=== PATIENT | female | born 1985 ===

== ENCOUNTER 2018-01-11 15:32 | Inpatient (IN) | payer OTHER ==
[~2018-01-11] VITALS: Ht 154.9 cm; Wt 65.0 kg
[2018-01-12] MEDS ORDERED: OXYTOCIN 30U/ 0.9% NaCL 500ML 500 ML IV SCH (05:44)
[2018-01-12] MEDS ORDERED: LACTATED RINGERS 1,000 ML IV SCH ×3 (05:44→07:36)
[2018-01-12] MEDS ORDERED: NEWBORN KIT ONE (05:56)
[2018-01-12] MEDS ORDERED: METOCLOPRAMIDE 5 MG/ML, 2ML IV ONE (06:00)
[2018-01-12] MEDS ORDERED: PLEASE ENTER ALLERGIES MC SCH (06:00)
[2018-01-12] MEDS ORDERED: SODIUM CITRATE/CITRIC ACID 30 ML UDC PO ONE (06:00)
[2018-01-12] MEDS ORDERED: ONDANSETRON 2MG/ML, 2ML IVPush ONE (06:00)
[2018-01-12] MEDS ORDERED: LACTATED RINGERS 1,000 ML IVBOLUS ONE (06:00)
[2018-01-12 06:15] LABS: BASOPHILS # (AUTO) 0.02 x10^3/uL (0-0.1); BASOPHILS % (AUTO) 0 % (0-1); EOSINOPHILS # (AUTO) 0.07 x10^3/uL (0-0.4); EOSINOPHILS % (AUTO) 1 % (1-7); LYMPHOCYTES # (AUTO) 1.93 x10^3/uL (1-3.4); LYMPHOCYTES % (AUTO) 23 % (22-44); MD NO; MEAN CORPUSCULAR HEMOGLOBIN 31.4 pg (27.0-34.8); MEAN CORPUSCULAR HGB CONC 33.8 g/dL (32.4-35.8); MEAN CORPUSCULAR VOLUME 92.9 fL (80-100); MEAN PLATELET VOLUME 8.8 fL (7.4-10.4); MONOCYTES # (AUTO) 0.58 x10^3/uL (0.2-0.8); MONOCYTES % (AUTO) 7 % (2-9); NEUTROPHILS # (AUTO) 5.93 x10^3/uL (1.8-6.8); NEUTROPHILS % (AUTO) 70 % (42-75); PLATELET COUNT 191 x10^3/uL (130-400); RED BLOOD COUNT 4.22 x10^6/uL (3.82-5.3); RED CELL DISTRIBUTION WIDTH 15.8 % (9.6-15.2)
[2018-01-12] MEDS ORDERED: METOCLOPRAMIDE 5 MG/ML, 2ML ONE (06:55)
[2018-01-12] MEDS ORDERED: SODIUM CITRATE/CITRIC ACID 30 ML UDC ONE (06:55)
[2018-01-12] MEDS ORDERED: FENTANYL PF 100 MCG/2ML ONE (07:08)
[2018-01-12] MEDS ORDERED: LIDOCAINE-MPF 2% ,5ML ONE (07:09)
[2018-01-12] MEDS ORDERED: OXYTOCIN 10 UNITS/ML, 1ML ONE (07:09)
[2018-01-12] MEDS ORDERED: CEFAZOLIN 1,000 MG ONE (07:09)
[2018-01-12] MEDS ORDERED: BUPIVACAINE/PF 0.5% ONE (07:10)
[2018-01-12] MEDS: OXYTOCIN 30U/ 0.9% NaCL 500ML 500 ML IV SCH ×2 (07:36→17:36)
[2018-01-12] MEDS ORDERED: OXYcodone/APAP 5/325MG TABLET PO PRN (08:00)
[2018-01-12] MEDS ORDERED: CALCIUM CARBONATE 500 MG TAB.CHEW PO PRN (08:00)
[2018-01-12] MEDS ORDERED: DIPH,PERTUSS(ACELL),TET VAC/PF NC IM-VACC PRN (08:00)
[2018-01-12] MEDS ORDERED: MISOPROSTOL 200 MCG TABLET PR PRN (08:00)
[2018-01-12] MEDS ORDERED: KETOROLAC 30 MG/1 ML IV SCH (08:00)
[2018-01-12] MEDS ORDERED: SIMETHICONE 80 MG CHEW TAB PO PRN (08:00)
[2018-01-12] MEDS ORDERED: morphine SULFATE 10 MG/ML, 1ML IVPush PRN ×2 (08:00)
[2018-01-12] MEDS ORDERED: MEASLES,MUMPS&RUBELLA VACC/PF 0.5 ML SQ-VACC PRN (08:00)
[2018-01-12] MEDS ORDERED: ONDANSETRON 2MG/ML, 2ML IV PRN ×2 (08:00→09:00)
[2018-01-12] MEDS ORDERED: ONDANSETRON 2MG/ML, 2ML ONE (08:18)
[2018-01-12] MEDS ORDERED: KETOROLAC 30 MG/1 ML ONE (08:18)
[2018-01-12] MEDS ORDERED: GLYCOPYRROLATE 0.4 MG/2 ML, 2ML ONE (08:21)
[2018-01-12] MEDS ORDERED: OXYTOCIN 30U/ 0.9% NaCL 500ML 500 ML ONE (08:44)
[2018-01-12] MEDS ORDERED: FENTANYL PF 100 MCG/2ML IV PRN (09:00)
[2018-01-12] MEDS ORDERED: MORPHINE SULFATE 4 MG/ML, 1ML IVPush PRN (09:00)
[2018-01-12] MEDS: PRENATAL VIT/IRON/FA 1 EACH TABLET PO SCH (09:00)
[2018-01-12] MEDS ORDERED: OXYcodone 5 MG/5 ML ORAL.SOL UDC PO PRN (09:00)
[2018-01-12] MEDS ORDERED: PROMETHAZINE 25 MG/ML, 1ML IV PRN (09:00)
[2018-01-12] MEDS: LACTATED RINGERS 1,000 ML IV SCH ×2 (09:11→17:36)
[2018-01-12 10:45] VITALS: BP 107/72
[2018-01-12 15:03] LABS: MEAN CORPUSCULAR HEMOGLOBIN 30.8 pg (27.0-34.8); MEAN CORPUSCULAR HGB CONC 33.5 g/dL (32.4-35.8); MEAN CORPUSCULAR VOLUME 91.9 fL (80-100); MEAN PLATELET VOLUME 8.6 fL (7.4-10.4); PLATELET COUNT 160 x10^3/uL (130-400); RED BLOOD COUNT 3.64 x10^6/uL (3.82-5.3); RED CELL DISTRIBUTION WIDTH 15.7 % (9.6-15.2)
[2018-01-12 15:20] VITALS: BP 91/50
[2018-01-12 15:40] LABS: BASOPHILS # (AUTO) 0.05 x10^3/uL (0-0.1); BASOPHILS % (AUTO) 0 % (0-1); EOSINOPHILS # (AUTO) 0.02 x10^3/uL (0-0.4); EOSINOPHILS % (AUTO) 0 % (1-7); LYMPHOCYTES # (AUTO) 1.45 x10^3/uL (1-3.4); LYMPHOCYTES % (AUTO) 14 % (22-44); MD NO; MONOCYTES # (AUTO) 0.35 x10^3/uL (0.2-0.8); MONOCYTES % (AUTO) 3 % (2-9); NEUTROPHILS # (AUTO) 8.41 x10^3/uL (1.8-6.8); NEUTROPHILS % (AUTO) 82 % (42-75)
[2018-01-12] MEDS ORDERED: EPHEDRINE 50 MG/ML, 1ML ONE (16:06)
[2018-01-12 19:45] VITALS: BP 92/54
[2018-01-12] MEDS: KETOROLAC 30 MG/1 ML IV SCH (20:30)
[2018-01-12] MEDS: DOCUSATE 100 MG CAPSULE PO PRN (20:30)
[2018-01-12] MEDS: ACETAMINOPHEN 325 MG TABLET PO PRN (20:36)
[2018-01-13] MEDS: ACETAMINOPHEN 325 MG TABLET PO PRN ×8 (00:31→20:29)
[2018-01-13 00:39] VITALS: BP 108/71
[2018-01-13] MEDS: KETOROLAC 30 MG/1 ML IV SCH ×4 (02:30→20:30)
[2018-01-13] MEDS: IBUPROFEN 600 MG TABLET PO PRN ×4 (02:43→22:43)
[2018-01-13] MEDS: OXYTOCIN 30U/ 0.9% NaCL 500ML 500 ML IV SCH ×3 (02:45→23:36)
[2018-01-13] MEDS: LACTATED RINGERS 1,000 ML IV SCH ×3 (02:45→23:36)
[2018-01-13 04:45] VITALS: BP 100/62
[2018-01-13 06:50] VITALS: BP 104/70
[2018-01-13] MEDS: DOCUSATE 100 MG CAPSULE PO PRN ×2 (08:30→20:29)
[2018-01-13] MEDS: PRENATAL VIT/IRON/FA 1 EACH TABLET PO SCH (09:00)
[2018-01-13 20:10] VITALS: BP 105/74
[2018-01-14] MEDS: OXYcodone/APAP 5/325MG TABLET PO PRN ×3 (00:27→14:21)
[2018-01-14 07:44] VITALS: BP 102/68
[2018-01-14] MEDS: PRENATAL VIT/IRON/FA 1 EACH TABLET PO SCH (09:00)
[2018-01-14] MEDS: IBUPROFEN 600 MG TABLET PO PRN (10:03)
[2018-01-14] MEDS: DOCUSATE 100 MG CAPSULE PO PRN (10:03)
[2018-01-14] MEDS ORDERED: OXYC-302 PO (10:13)
[2018-01-14] MEDS ORDERED: IBUP-1222 PO (10:13)
== END 2018-01-14 15:40 | disposition home or self-care (01) | DRG 766 ==
LOC: LDIP 01-12 05:40 → 2NW 01-12 10:40
PROVIDERS: ADMIT Obstetrics & Gynecology; ATTEND Obstetrics & Gynecology
PROC: 10D00Z1 Extraction of Products of Conception, Low, Open Approach (ICD-10-PCS; principal; 2018-01-12)
PROC: 0UB70ZZ Excision of Bilateral Fallopian Tubes, Open Approach (ICD-10-PCS; 2018-01-12)
DX: O34.211 Maternal care for low transverse scar from previous cesarean delivery (principal); Z37.0 Single live birth; Z30.2 Encounter for sterilization; Z3A.39 39 weeks gestation of pregnancy
CPT/HCPCS: 36415; 85025; 86850; 86900; 88302; J0690; J1885; J2405; J3010; J3490; J2590; J2765; J7120